=== PATIENT | male | born 1975 | race African-American/Black ===

== ENCOUNTER 2024-02-14 18:03 | Emergency (ER) | payer MEDICARE, MEDICAID, SELFPAY ==
--- NOTE | ~2024-02-14 | NM_ITS ---
PULMONARY PERFUSION ONLY STUDY: CLINICAL INDICATION: Shortness of breath. PROCEDURE: Following the intravenous administration of 4.0 millicuries technetium 99m MAA, images of the chest were obtained in multiple projections using a gamma scintiphotographic camera. COMPARISON: Chest radiograph done on 02/14/2024 and CTA of the chest done on 02/15/2024. PERFUSION IMAGES: No large segmental perfusion defects or other perfusion abnormalities are noted. NM/NM pul perfusion IMPRESSION: Based on perfusion only modified PIOPED 2 criteria, pulmonary thromboembolism is considered absent.
--- NOTE | ~2024-02-14 | CT_ITS ---
EXAMINATION: CT ANGIOGRAM CHEST, PE PROTOCOL CT ABDOMEN AND PELVIS WITH CONTRAST CLINICAL INFORMATION: Chest and abdominal pain COMPARISON: None TECHNIQUE: Multidetector CT pulmonary angiography of the thorax was performed according to the pulmonary embolism protocol after intravenous administration of 85 mL Omnipaque 350. Additionally, images of the abdomen and pelvis were acquired. Reformatted coronal and sagittal imaging was performed. 3-D MIP images performed at a dedicated separate workstation. This CT examination was performed using dose optimization techniques as appropriate, variously including the following: *Automated exposure control *Adjustment of mA and/or kV according to patient size (this includes techniques or standardized protocols for targeted exams where dose is matched to indication/reason for exam; i.e. extremities or head) *Use of iterative reconstruction technique DLP: 886 mGy-cm QUALITY: Overall Exam Quality: Poor. Pulmonary Arterial Enhancement: Suboptimal. Breath Hold: Adequate. Artifacts Impacting Image Quality: None. FINDINGS: VASCULAR: Heart: Normal in size. Coronary artery calcifications not present. Aorta: No thoracoabdominal aortic aneurysm. Three vessel arch. Pulmonary Artery: No filling defect is identified in the central pulmonary arterial branches to suggest pulmonary embolus. Mesenteric Arteries: Celiac artery is patent. Superior mesenteric artery patent. Inferior mesenteric artery patent. Renal Arteries: Single renal arteries bilaterally. Iliac arteries: The common, external and internal iliac arteries are patent. Proximal femoral vessels are patent. NONVASCULAR: THORAX: Thyroid Gland: The visualized thyroid gland is normal. Lymph Nodes: No supraclavicular, axillary, mediastinal or hilar lymphadenopathy is identified. Airways: The trachea and central bronchi are normal. Lungs: Bilateral basilar consolidations, likely atelectasis of the left. Superimposed infection on the right cannot be excluded. Pleura: No pleural effusion. No pneumothorax. ABDOMEN/PELVIS: Liver: Homogeneous in attenuation. Normal in size. Gallbladder: Noninflamed. Biliary System: No intrahepatic or extrahepatic biliary dilation. Pancreas: Homogeneous in attenuation. Spleen: Enlarged measuring 15 cm mid clavicular Genitourinary: Bilateral kidneys demonstrate symmetric enhancement. No perinephric fluid collection. No renal calculi. No hydroureteronephrosis. Urinary bladder is fluid-filled without focal wall thickening. Adrenal Glands: Unremarkable. Reproductive: Prostate present. Gastrointestinal: The visualized alimentary tract is normal in course. No evidence of obstruction. Appendix: The appendix is seen in its entirety and is unremarkable. Peritoneum: No pneumoperitoneum. No intra-abdominal fluid collection. Lymph Nodes: No pathologically enlarged abdominal or pelvic lymph nodes. Soft Tissues/Musculoskeletal: Bilateral femoral head infarcts. No acute fractures. CT/CT abdomen pelvis w IV con IMPRESSION: 1. Poor study for evaluation of pulmonary embolus. No filling defect identified within the central pulmonary arteries. More distal branches cannot be confidently assessed. 2. Bibasilar consolidation, likely atelectasis. Superimposed is suspected. Correlate with a disease and upper respiratory infectious symptoms. Fleischner guidelines were followed.
--- NOTE | ~2024-02-14 | XR_ITS ---
EXAMINATION: XR CHEST CLINICAL INFORMATION: Chest pain COMPARISON: None available. TECHNIQUE: 2 views of the chest were obtained. FINDINGS: The cardiac silhouette is normal. There is mild diffuse bronchial wall thickening. There are no areas of consolidation. There are no pleural effusions or pneumothoraces. The bones and soft tissues are unremarkable for the patient's age. XR/XR chest 2V IMPRESSION: Bronchial wall thickening may be infectious and/or inflammatory in etiology.
--- NOTE | 2024-02-14 18:08 | ECG_ITS ---
Test Reason : CP Blood Pressure : / mmHG Vent. Rate : 071 BPM Atrial Rate : 071 BPM P-R Int : 148 ms QRS Dur : 092 ms QT Int : 388 ms P-R-T Axes : 014 004 005 degrees QTc Int : 421 ms Normal sinus rhythm Minimal voltage criteria for LVH, may be normal variant ( R in aVL ) Nonspecific T wave abnormality Abnormal ECG No previous ECGs available Referred By: Generic ED Physician Electronically Signed By:Winston Finn
[2024-02-14 18:57] VITALS: BP 122/61; PULSE 80; RESP 28; TEMP 36.4; O2SAT 96; BMI 28.8
--- NOTE | 2024-02-14 18:57 | ED.CHESTPAIN ---
HPI - Chest Pain General Chief Complaint: Chest Pain Stated Complaint: Chest pain Time Seen by Provider: 02/14/24 21:52 Related Data Previous Rx's ?Medication ?Instructions ?Recorded azithromycin 250 mg tablet See Rx Instructions PO .COMPLEX 02/15/24 upper resp infection #6 tabs Allergies Allergy/AdvReac Type Severity Reaction Status Date / Time No Known Allergies Allergy Verified 02/14/24 19:01 [facility] Social History Social History Smoked in Last 30 Days: Yes Use of substances other than those prescribed or required for medical reasons: No Advance Directives: No Advance Directives Information Provided: No Physical Exam Vital Signs: Vital Signs: Last Vital Signs Temp 98.4 F 02/15/24 06:07 Pulse 79 02/15/24 06:07 Resp 18 02/15/24 06:07 BP 107/58 L 02/15/24 06:07 Pulse Ox 91 L 02/15/24 06:07 O2 Del Method Room Air 02/15/24 06:07 BMI result Body Mass Index 28.8 Course Course Course Narrative: This is a Rapid Medical Examination (RME) performed by Melva Claros PA-C in triage. Full HPI, ROS, assessment and treatment plan per primary provider in the Main ED. 48 yo male presents to the ER for evaluation of sudden onset of right sided chest pain that started while vaping last night. pain kept him awake and associated with SOB and difficulty taking a deep breath. VS stable in triage. pain is 10/10 right now along the entire right chest and radiating laterally. diminished lung sounds on the right. speaking in complete sentences. Plan: EKG, CXR, labs Medications Administered Discontinued Medications Generic Name Dose Route Start Last Admin Trade Name Zachq PRN Reason Stop Dose Admin Azithromycin 500 mg 02/15/24 02:50 02/15/24 04:11 Azithromycin 500 Mg Tablet PO 02/15/24 02:51 500 mg ONCE ONE Administration Enoxaparin Sodium 90 mg 02/15/24 02:50 02/15/24 03:37 Enoxaparin Sodium 100 Mg/Ml Syringe SUBCUT 02/15/24 02:51 90 mg ONCE ONE Administration Hydromorphone HCl 0.5 mg 02/14/24 23:00 02/14/24 23:18 Hydromorphone Hcl 0.5 Mg/0.5 Ml Syringe IVPUSH 02/14/24 23:01 0.5 mg ONCE ONE Administration Protocol Hydromorphone HCl 0.5 mg 02/14/24 23:49 02/14/24 23:53 Hydromorphone Hcl 0.5 Mg/0.5 Ml Syringe IVPUSH 02/14/24 23:50 0.5 mg ONCE ONE Administration Protocol Ceftriaxone Sodium 1 gm/ 50 mls @ 100 mls/hr 02/15/24 02:50 02/15/24 04:12 Sodium Chloride IV 02/15/24 03:19 Infused ONCE ONE Infusion Iohexol 85 ml 02/15/24 00:30 02/15/24 00:31 Iohexol 350 Mg/Ml 100 Ml Infus..Btl IV 02/15/24 00:31 85 ml ONCE ONE Administration Ketorolac Tromethamine 30 mg 02/15/24 01:49 02/15/24 01:50 Ketorolac Tromethamine 30 Mg/Ml Vial IVPUSH 02/15/24 01:50 30 mg ONCE ONE Administration Medical Decision Making Lab Data 02/15/24 03:13 02/14/24 19:46 Labs: Lab Results 02/14/24 02/14/24 02/15/24 Range/Units 19:46 23:18 03:12 WBC 8.4 (4.8-10.8) X10*3/uL RBC 4.11 L (4.60-5.80) X10*6/uL Hgb 12.2 L (14.0-18.0) g/dl Hct 33.9 L (42.0-52.0) % MCV 82.5 (80.0-98.0) fL MCH 29.7 (27.0-33.0) pg MCHC 36.0 (31.0-36.0) g/dl RDW 11.9 (11.0-16.0) % Plt Count 159 L (160-400) X10*3/uL MPV 10.9 (9.4-12.4) fL Immature Gran % (Auto) 0.1 (0.0-0.4) % Neut % (Auto) 62.7 (45-73) % Lymph % (Auto) 23.5 (20-40) % [place] % (Auto) 11.4 H (2-11) % Eos % (Auto) 1.8 (0-4) % Baso % (Auto) 0.5 (0-2) % Lymph # (Auto) 2.0 (1.2-4.9) X10*3/uL [place] # (Auto) 1.0 (0.1-1.2) X10*3/uL Eos # (Auto) 0.2 (0.0-0.4) X10*3/uL Baso # (Auto) 0.0 (0.0-0.2) X10*3/uL Abs Immat Gran (auto) 0.01 (0.00-0.03) X10*3/uL Absolute Neuts (auto) 5.3 (2.0-8.3) x10*3/uL Absolute Nucleated RBC 0.000 (0.0-0.012) X10*3/uL Nucleated RBC % (auto) 0.0 (0.0-0.2) /100WBC PT (11.1-13.3) SEC INR (0.9-1.1) APTT (26.0-36.8) SEC D-Dimer High Sensitivty 281 NG/ML Sodium 140 (135-145) mmol/L Potassium 3.4 (3.3-5.1) mmol/L Chloride 104 (96-108) mmol/L Carbon Dioxide 27 (22-29) mmol/L Anion Gap 12 (12-20) BUN 7 L (9-16) mg/dL Creatinine 0.88 (0.5-1.4) mg/dL Estim Creat Clear Calc 122.5 Estimated GFR > 60 Random Glucose 95 (60-115) mg/dL Lactic Acid 0.6 (0.5-2.0) mmol/L Calcium 9.8 (8.4-10.2) mg/dL Magnesium 2.3 (1.6-2.6) mg/dL Total Bilirubin 0.8 (0.0-1.0) mg/dL Direct Bilirubin 0.3 (0.0-0.5) mg/dL AST 14 (5-37) U/L ALT 8 (0-40) U/L Alkaline Phosphatase 79 (39-117) U/L Troponin I High Sens < 2.7 < 2.7 (<3.5-35.0) ng/L B-Natriuretic Peptide 12 (<100) pg/mL Total Protein 8.8 H (6.5-8.0) g/dL Albumin 4.5 (3.5-5.0) g/dL Urine Color Urine Appearance Urine pH (5.0-9.0) Ur Specific [place] (1.005-1.025) Urine Protein (Neg-Trace) mg/dL Urine Glucose (UA) (Negative) mg/dL Urine Ketones (Negative) mg/dL Urine Blood (Negative) Urine Nitrite (Negative) Ur Leukocyte Esterase (Negative) Urine RBC (0-2) /HPF Urine WBC (0-5) /HPF Ur Squamous Epith Cells (0-2) /HPF Urine Bacteria (None Seen) Hyaline Casts (0-2) /LPF 02/15/24 Range/Units 03:13 WBC 8.9 (4.8-10.8) X10*3/uL RBC 4.08 L (4.60-5.80) X10*6/uL Hgb 12.1 L (14.0-18.0) g/dl Hct 33.4 L (42.0-52.0) % MCV 81.9 (80.0-98.0) fL MCH 29.7 (27.0-33.0) pg MCHC 36.2 H (31.0-36.0) g/dl RDW 11.8 (11.0-16.0) % Plt Count 144 L (160-400) X10*3/uL MPV 10.8 (9.4-12.4) fL Immature Gran % (Auto) (0.0-0.4) % Neut % (Auto) (45-73) % Lymph % (Auto) (20-40) % [place] % (Auto) (2-11) % Eos % (Auto) (0-4) % Baso % (Auto) (0-2) % Lymph # (Auto) (1.2-4.9) X10*3/uL [place] # (Auto) (0.1-1.2) X10*3/uL Eos # (Auto) (0.0-0.4) X10*3/uL Baso # (Auto) (0.0-0.2) X10*3/uL Abs Immat Gran (auto) (0.00-0.03) X10*3/uL Absolute Neuts (auto) (2.0-8.3) x10*3/uL Absolute Nucleated RBC 0.000 (0.0-0.012) X10*3/uL Nucleated RBC % (auto) 0.0 (0.0-0.2) /100WBC PT 17.5 H (11.1-13.3) SEC INR 1.4 H (0.9-1.1) APTT 30.4 (26.0-36.8) SEC D-Dimer High Sensitivty NG/ML Sodium (135-145) mmol/L Potassium (3.3-5.1) mmol/L Chloride (96-108) mmol/L Carbon Dioxide (22-29) mmol/L Anion Gap (12-20) BUN (9-16) mg/dL Creatinine (0.5-1.4) mg/dL Estim Creat Clear Calc Estimated GFR Random Glucose (60-115) mg/dL Lactic Acid (0.5-2.0) mmol/L Calcium (8.4-10.2) mg/dL Magnesium (1.6-2.6) mg/dL Total Bilirubin (0.0-1.0) mg/dL Direct Bilirubin (0.0-0.5) mg/dL AST (5-37) U/L ALT (0-40) U/L Alkaline Phosphatase (39-117) U/L Troponin I High Sens (<3.5-35.0) ng/L B-Natriuretic Peptide (<100) pg/mL Total Protein (6.5-8.0) g/dL Albumin (3.5-5.0) g/dL Urine Color Yellow Urine Appearance Clear Urine pH 5.5 (5.0-9.0) Ur Specific [place] >= 1.030 H (1.005-1.025) Urine Protein 30 (1+) H (Neg-Trace) mg/dL Urine Glucose (UA) Negative (Negative) mg/dL Urine Ketones Negative (Negative) mg/dL Urine Blood Negative (Negative) Urine Nitrite Negative (Negative) Ur Leukocyte Esterase Negative (Negative) Urine RBC 0-2 (0-2) /HPF Urine WBC 0-5 (0-5) /HPF Ur Squamous Epith Cells 0-2 (0-2) /HPF Urine Bacteria None Seen (None Seen) Hyaline Casts 3-5 (0-2) /LPF Discharge Plan Discharge Clinical Impression: Chest pain, Pneumonia, Pulmonary emboli Patient Disposition: Still a Patient Instructions: Chest Pain (ED) Prescriptions: New azithromycin 250 mg tablet See Rx Instructions .ROUTE .COMPLEX Qty: 6 0RF Rx Instructions: take 500 mg today (day 1), then 250 mg for 4 days (days 2-5) Referrals: Physician,Unknown J [Primary Care Provider] - 02/17/24 Print Language: Japanese
--- NOTE | 2024-02-14 19:46 | MHC.EDTECH ---
Patient brought into triage area,labs drawn and sent to lab,patient brought back to waiting room.
[2024-02-14 19:56] LABS: MANUAL DIFF FLAG NO
[2024-02-14 19:58] LABS: Basophils Percent Auto 0.5 % (0-2); Eosinophils Absolute Auto 0.2 X10*3/uL (0.0-0.4); Eosinophils Percent Auto 1.8 % (0-4); Hematocrit 33.9 % (42.0-52.0); Hemoglobin 12.2 g/dl (14.0-18.0); Imm Gran Abs Auto 0.01 X10*3/uL (0.00-0.03); Imm Gran Pct Auto 0.1 % (0.0-0.4); Lymphocytes Percent Auto 23.5 % (20-40); Mean Corpuscular Hemoglobin 29.7 pg (27.0-33.0); Mean Corpuscular Volume 82.5 fL (80.0-98.0); Mean Platelet Volume 10.9 fL (9.4-12.4); Monocytes Percent Auto 11.4 % (2-11); Neutrophils Absolute Auto 5.3 x10*3/uL (2.0-8.3); Neutrophils Percent Auto 62.7 % (45-73); Platelet Count 159 X10*3/uL (160-400); Red Blood Count 4.11 X10*6/uL (4.60-5.80); Red Cell Distribution Width 11.9 % (11.0-16.0); White Blood Count 8.4 X10*3/uL (4.8-10.8)
[2024-02-14 20:17] LABS: Alanine Aminotransferase 8 U/L (0-40); Albumin Level 4.5 g/dL (3.5-5.0); Alkaline Phosphatase 79 U/L (39-117); Anion Gap 12 (12-20); Aspartate Amino Transferase 14 U/L (5-37); Bilirubin Direct 0.3 mg/dL (0.0-0.5); Bilirubin Total 0.8 mg/dL (0.0-1.0); Blood Urea Nitrogen 7 mg/dL (9-16); Calcium 9.8 mg/dL (8.4-10.2); Carbon Dioxide 27 mmol/L (22-29); Chloride 104 mmol/L (96-108); Creatinine Clr Calc Pharmacy 122.5; Estimated Glomerular Filt Rate > 60; Glucose Random 95 mg/dL (60-115); Magnesium 2.3 mg/dL (1.6-2.6); Potassium 3.4 mmol/L (3.3-5.1); Sodium 140 mmol/L (135-145); Total Protein 8.8 g/dL (6.5-8.0)
[2024-02-14 20:23] LABS: B Type Natriuretic Peptide 12 pg/mL (<100)
[2024-02-14 20:26] LABS: Troponin-I High Sensitivity < 2.7 ng/L (<3.5-35.0)
--- NOTE | 2024-02-14 23:05 | ED.CHESTPAIN ---
HPI - Chest Pain General Chief Complaint: Chest Pain Stated Complaint: Chest pain Time Seen by Provider: 02/14/24 21:52 History of Present Illness HPI narrative: Patient is a 48-year-old male presents today with having chest pain on the right side while vaping. Now also has right abdominal pain. Patient denies any fever chills. No history of leg swelling. No history of blood clots. Patient is from home. No other recreational drug use. Positive history diabetes. No history of hypertension, high cholesterol, mi. No long distance travel. No change in bowel movement. Related Data Allergies Allergy/AdvReac Type Severity Reaction Status Date / Time No Known Allergies Allergy Verified 02/14/24 19:01 Review of Systems Review of Systems: Positive right-sided pain PMFSH Past Medical History Attestation statement: The following information was validated with the patient. Social History Social History Smoked in Last 30 Days: Yes Use of substances other than those prescribed or required for medical reasons: No Advance Directives: No Advance Directives Information Provided: No Physical Exam Vital Signs: Vital Signs: Last Vital Signs Temp 97.5 F 02/15/24 00:44 Pulse 91 02/15/24 00:44 Resp 16 02/15/24 00:44 BP 117/63 02/15/24 00:44 Pulse Ox 92 02/15/24 00:44 O2 Del Method Room Air 02/15/24 00:44 BMI result Body Mass Index 28.8 Appearance: Alert. Oriented X3. No acute distress. Eyes: Pupils equal, round and reactive to light. ENT: Pharynx normal. Neck: Normal inspection. Neck supple. No lymph nodes noted. No crepitus CVS: Normal heart rate and rhythm. Pulses normal. Normal S1 and S2 Respiratory: No respiratory distress. Breath sounds normal. No Wheezing. No rales Abdomen: Soft and nontender. No rigidity. No distention. good BS x4 Skin: Skin warm and dry. Normal skin color. Normal skin turgor. Extremities: No lower extremity edema. Neurovascular intact to all extremities. No Lacerations. No Rash Neuro: Oriented X 3. No motor deficit. No sensory deficit. Moving all extermities. No slurred speech Medications Administered Discontinued Medications Generic Name Dose Route Start Last Admin Trade Name Freq PRN Reason Stop Dose Admin Hydromorphone HCl 0.5 mg 02/14/24 23:00 02/14/24 23:18 Hydromorphone Hcl 0.5 Mg/0.5 Ml Syringe IVPUSH 02/14/24 23:01 0.5 mg ONCE ONE Administration Protocol Hydromorphone HCl 0.5 mg 02/14/24 23:49 02/14/24 23:53 Hydromorphone Hcl 0.5 Mg/0.5 Ml Syringe IVPUSH 02/14/24 23:50 0.5 mg ONCE ONE Administration Protocol Iohexol 85 ml 02/15/24 00:30 02/15/24 00:31 Iohexol 350 Mg/Ml 100 Ml Infus..Btl IV 02/15/24 00:31 85 ml ONCE ONE Administration Ketorolac Tromethamine 30 mg 02/15/24 01:49 02/15/24 01:50 Ketorolac Tromethamine 30 Mg/Ml Vial IVPUSH 02/15/24 01:50 30 mg ONCE ONE Administration Medical Decision Making Medical Decision Making [facility] Narrative: Patient's white count is normal. There is no significant shift noted. Patient's chest x-ray did not show any gross focal infiltrate. Because the patient's elevated D-dimer short of breath chest pain worsened with deep breath. A CTA of the chest was done. Unfortunately was suboptimal due to circumstances. It showed bilateral lower infiltrate versus atelectasis. Patient's O2 sat is 89-90% on room air. Patient is CTA was suboptimal to look for peripheral blood clots. Patient will be started on Lovenox. Culture antibiotics started. Patient's case discussed with the hospitalist team. Differential Diagnosis Differential Diagnoses: The differential diagnosis associated with the presentation includes Pleurisy versus PE versus pneumonia versus ACS versus intra-abdominal pathology Admission/Observation Consideration of admission/observation: Escalation of care including admission/observation considered Consult Healthcare Provider Management of the patient was discussed with: Hospitalist Lab Data [facility] Lab Attestation statement: I reviewed the patient's lab results. 02/14/24 19:46 02/14/24 19:46 Labs: Lab Results 02/14/24 02/14/24 Range/Units 19:46 23:18 WBC 8.4 (4.8-10.8) X10*3/uL RBC 4.11 L (4.60-5.80) X10*6/uL Hgb 12.2 L (14.0-18.0) g/dl Hct 33.9 L (42.0-52.0) % MCV 82.5 (80.0-98.0) fL MCH 29.7 (27.0-33.0) pg MCHC 36.0 (31.0-36.0) g/dl RDW 11.9 (11.0-16.0) % Plt Count 159 L (160-400) X10*3/uL MPV 10.9 (9.4-12.4) fL Immature Gran % (Auto) 0.1 (0.0-0.4) % Neut % (Auto) 62.7 (45-73) % Lymph % (Auto) 23.5 (20-40) % [place] % (Auto) 11.4 H (2-11) % Eos % (Auto) 1.8 (0-4) % Baso % (Auto) 0.5 (0-2) % Lymph # (Auto) 2.0 (1.2-4.9) X10*3/uL [place] # (Auto) 1.0 (0.1-1.2) X10*3/uL Eos # (Auto) 0.2 (0.0-0.4) X10*3/uL Baso # (Auto) 0.0 (0.0-0.2) X10*3/uL Abs Immat Gran (auto) 0.01 (0.00-0.03) X10*3/uL Absolute Neuts (auto) 5.3 (2.0-8.3) x10*3/uL Absolute Nucleated RBC 0.000 (0.0-0.012) X10*3/uL Nucleated RBC % (auto) 0.0 (0.0-0.2) /100WBC D-Dimer High Sensitivty 281 NG/ML Sodium 140 (135-145) mmol/L Potassium 3.4 (3.3-5.1) mmol/L Chloride 104 (96-108) mmol/L Carbon Dioxide 27 (22-29) mmol/L Anion Gap 12 (12-20) BUN 7 L (9-16) mg/dL Creatinine 0.88 (0.5-1.4) mg/dL Estim Creat Clear Calc 122.5 Estimated GFR > 60 Random Glucose 95 (60-115) mg/dL Calcium 9.8 (8.4-10.2) mg/dL Magnesium 2.3 (1.6-2.6) mg/dL Total Bilirubin 0.8 (0.0-1.0) mg/dL Direct Bilirubin 0.3 (0.0-0.5) mg/dL AST 14 (5-37) U/L ALT 8 (0-40) U/L Alkaline Phosphatase 79 (39-117) U/L Troponin I High Sens < 2.7 < 2.7 (<3.5-35.0) ng/L B-Natriuretic Peptide 12 (<100) pg/mL Total Protein 8.8 H (6.5-8.0) g/dL Albumin 4.5 (3.5-5.0) g/dL Independent Interpretation I performed an independent interpretation of an: EKG (Patient's heart rate is proximally 75 [place] QRS QTC within normal limits is diffuse T-wave flattening noted. No acute ST segment elevation.) and Plain X-Ray (Chest x-ray is grossly negative for any acute infiltrate) Radiology Impression Discussion of test interpretation with radiology: I have reviewed the radiologist's reading. Independent Historian Clinical information obtained from an independent historian. History obtained from or confirmed by: Spouse Chronic Conditions Patient?s care impacted by: Hypertension Social Determinants Patient?s care significantly limited by Social Determinants of Health including: Inadequate housing and Alcoholism and drug addiction in family Discharge Plan Discharge Clinical Impression: Chest pain, Pneumonia, Pulmonary emboli Patient Disposition: Admitted As Inpatient Print Language: Guatemalan
[2024-02-14] MEDS: HYDROmorphone HCl 0.5 MG/0.5 ML SYRINGE IVPUSH ×2 (23:18→23:53)
[2024-02-14 23:31] LABS: D Dimer High Sensitivity 281 NG/ML
[2024-02-14 23:44] LABS: Troponin-I High Sensitivity < 2.7 ng/L (<3.5-35.0)
--- NOTE | 2024-02-14 23:49 | ECG_ITS ---
Test Reason : CHEST PAIN Blood Pressure : / mmHG Vent. Rate : 076 BPM Atrial Rate : 076 BPM P-R Int : 126 ms QRS Dur : 104 ms QT Int : 384 ms P-R-T Axes : 034 023 019 degrees QTc Int : 432 ms Normal sinus rhythm Nonspecific T wave abnormality Abnormal ECG When compared with ECG of 14-FEB-2024 18:08, No significant change was found Referred By: Airam Orosco Electronically Signed By:Winston Finn
[2024-02-15] MEDS: iohexoL 350 MG/ML 100 ML INFUS..BTL 85 ML IV (00:31)
[2024-02-15 00:44] VITALS: BP 117/63; PULSE 91; RESP 16; TEMP 36.4; O2SAT 92
[2024-02-15] MEDS: Ketorolac Tromethamine 30 MG/ML VIAL IVPUSH ×2 (01:50→10:39)
[2024-02-15 03:21] LABS: Appearance Urine Clear; Color Urine Yellow; Glucose Urine UA Negative (Negative); Leukocyte Esterase Urine Negative (Negative); Nitrite Urine Negative (Negative); PH 5.5 (5.0-9.0); Specific Gravity - Urine >= 1.030 (1.005-1.025); UMIC TRIGGER UACC YES; Urine Blood Negative (Negative); Urine Ketones Negative (Negative); Urine Protein 30 (1+) mg/dL (Neg-Trace)
[2024-02-15 03:22] LABS: Hematocrit 33.4 % (42.0-52.0); Hemoglobin 12.1 g/dl (14.0-18.0); Mean Corpuscular HGB Conc 36.2 g/dl (31.0-36.0); Mean Corpuscular Hemoglobin 29.7 pg (27.0-33.0); Mean Corpuscular Volume 81.9 fL (80.0-98.0); Mean Platelet Volume 10.8 fL (9.4-12.4); Platelet Count 144 X10*3/uL (160-400); Red Blood Count 4.08 X10*6/uL (4.60-5.80); Red Cell Distribution Width 11.8 % (11.0-16.0); White Blood Count 8.9 X10*3/uL (4.8-10.8)
[2024-02-15 03:26] LABS: INTERNATIONAL NORM RATIO 1.4 (0.9-1.1); Prothrombin Time 17.5 SEC (11.1-13.3)
[2024-02-15 03:28] LABS: Partial Thromboplastin Time 30.4 SEC (26.0-36.8)
[2024-02-15 03:33] LABS: Lactic Acid 0.6 mmol/L (0.5-2.0)
--- NOTE | 2024-02-15 03:33 | MHC.EDTECH ---
O2 saturation ambulation trial performed by this tech. While ambulating O2 sats ranged from 97% to 100%. When returned to sitting O2 sats returned to a range of 89%-92%. Orosco aware.
--- NOTE | 2024-02-15 03:36 | PM.EVENT ---
Event Note Date of Service: 02/15/24 Event Note: I was asked to evaluate this patient for admission. Patient states he vapes and developed pleuritic chest pain on the day of presentation. CTA with suboptimal study but no central PE. Patient maintaining sats 92-93% on room air. Not requiring supplemental oxygen. Ambulated the patient in hallway and patient's sats were 97-100% throughout. Not septic. Currently does not meet inpatient criteria. He is hemodynamically stable. Patient states his pleuritic chest pain was relieved with Toradol. Etiology likely pleurisy in the setting of vaping (cant rule out PE). Discussed with ER provider. V/Q scan to be obtained in a.m.. Time Spent With Patient Time: Total time managing care of this patient today ____ minutes.
[2024-02-15] MEDS: Enoxaparin Sodium 100 MG/ML SYRINGE 90 MG SUBCUT (03:37)
[2024-02-15] MEDS: cefTRIAXone sodium 1 GM in 0.9 % Sodium Chloride 50 ML IV (03:37)
[2024-02-15 03:40] VITALS: O2SAT 98
[2024-02-15 03:51] LABS: Bacteria Urine None Seen (None Seen); RBC Urine 0-2 /HPF (0-2); Squamous Epithelial Cell Urine 0-2 /HPF (0-2); WBC Urine 0-5 /HPF (0-5)
[2024-02-15] MEDS: Azithromycin 500 MG TABLET PO (04:11)
[2024-02-15 06:07] VITALS: BP 107/58; PULSE 79; RESP 18; TEMP 36.9; O2SAT 91
[2024-02-15 08:30] VITALS: BP 132/70; PULSE 88; RESP 21; O2SAT 95
--- NOTE | 2024-02-15 08:45 | PC.NURSE ---
this RN resumed care of pt at 0645. a&ox4. vss and up to date. nsr on the electronic device monitor. pt had episode where O2 dropped to 89% on RA while laying on stretcher/in no apparent distress. pt repositioned - O2 increased to 93%. pt continues to rest in no apparent distress. pt waiting for V/Q to be completed. no sob/wob noted. respirations even/unlabored. plan of care ongoing. call edwards placed within reach.
--- NOTE | 2024-02-15 09:13 | PC.NURSE ---
Shantanu from [facility] called this RN stating that V/Q scan is scheduled for 929 at this time. plan of care ongoing.
--- NOTE | 2024-02-15 09:21 | PC.NURSE ---
pt being transported to V/Q scan by [facility] at this time.
--- NOTE | 2024-02-15 10:41 | PC.NURSE ---
pt returned from [facility] at this time. c/o increase in right sided chest wall pain - rating pain at an 8/10. pt medicated per provider order. effectiveness pending. pt continues to rest at 90%-91%. no sob/wob noted. respirations even/unlabored. plan of care ongoing. call edwards placed within reach.
--- NOTE | 2024-02-15 11:29 | PC.NURSE ---
pt incontinent of urine. fresh linen/pads applied. pt brought personal briefs from home - fresh brief applied to pt at this time. pt refusing to change into hospital attire. continues to rest in no apparent distress. no sob/wob noted. respirations remain even/unlabored. plan of care ongoing. call edwards placed within reach.
[2024-02-15 11:50] VITALS: BP 117/71; PULSE 85; RESP 16; TEMP 36.8; O2SAT 93
[2024-02-15 12:08] VITALS: BP 120/60; PULSE 88; RESP 18; TEMP 36.9; O2SAT 98
== END 2024-02-15 12:09 | disposition home or self-care (01) ==
PROVIDERS: Physician Assistant; Emergency Provider Emergency Medicine Emergency Medical Services
DX: R07.9 Chest pain, unspecified (principal); J18.9 Pneumonia, unspecified organism; U07.0 Vaping-related disorder; I26.99 Other pulmonary embolism without acute cor pulmonale; E11.9 Type 2 diabetes mellitus without complications; I10 Essential (primary) hypertension
CPT/HCPCS: 36415; 71046; 71275; 74177; 78580; 80048; 80076; 81001; 83605; 83735; 83880; 84484; 85025; 85027; 85379; 85610; 85730; 87040; 92950; 93005; 96365; 96372; 96375; 96376; 99285; A9540; J0696; J1170; J1650; J1885; Q9967

== ENCOUNTER → 2024-02-14 18:08 | Outpatient (BNV) | payer MEDICARE, MEDICAID, SELFPAY | PROVIDERS: Emergency Provider Emergency Medicine Emergency Medical Services; Visit Provider Internal Medicine Cardiovascular Disease | DX: R07.9 Chest pain, unspecified (principal); R94.31 Abnormal electrocardiogram [ECG] [EKG] | CPT/HCPCS: 93010 ==